=== PATIENT | female | born 1965 | race Caucasian/White ===

== ENCOUNTER → 2021-01-04 15:30 | Outpatient (BNVA) | payer SELFPAY | PROVIDERS: Visit Provider Nurse Practitioner Family | DX: N39.0 Urinary tract infection, site not specified (principal) | CPT/HCPCS: 81000; 87086 ==

== ENCOUNTER 2021-07-04 13:30 | Emergency (ER) | payer OTHER, SELFPAY ==
[2021-07-04 13:38] VITALS: BP 121/81; PULSE 110; RESP 18; TEMP 36.8; O2SAT 98; BMI 26.1
--- NOTE | 2021-07-04 13:51 | ED_ITS ---
HPI - General Adult General: Chief complaint: General Medical Stated complaint: diff swallowing, abnormality in the back of throat Time Seen by Provider: 07/04/21 13:43 History of Present Illness: Patient complains about sinus drainage over the last month. Patient now does have some dark drainage back of her throat. Patient denies cough fever or chills. Patient says throat is sore and hurts to swallow at times. Patient recently moved here from [facility]. Patient is a smoker. Patient denies any other problems. MD complaint: Sinus drainage and sore throat Associated symptoms: Reports nausea and vomiting; Deny chest pain, dyspnea, headache(s) or rash Review of Systems Narrative: Patient has not felt ill. Const: Denies: fever(s), chills or body aches Eyes: Denies: eye discomfort ENMT: Reports: throat pain and other (Drainage down the back of the throat, noticed dark drainage today in back o); Denies: uvular edema Card: Reports: dyspnea on exertion; Denies: chest pain Resp: Denies: dyspnea GI: Reports: nausea and vomiting; Denies: abdominal pain Skin/Breast: Denies: rash Neuro: Denies: headache(s) Psych: Denies: depression or suicidal ideation PFSH ED PFSH: Social History Smoking and tobacco status: current every day smoker Physical Exam Const: COMMON NORMALS: no acute distress, patient oriented x3 and alert HENMT: COMMON NORMALS: normocephalic HEAD & SCALP: normocephalic FACE & SINUS: normal facial exam and sinuses nontender THROAT: uvula midline, postnasal drainage and other (Patient has light brown to darkish drainage plastered against the back of t); no peritonsillar mass, uvula not laterally displaced and no uvular edema Eye: COMMON NORMALS: EOMs intact bilaterally Neck/C-Spine: COMMON NORMALS: no JVD Lymph: LYMPHATIC: lymphadenopathy (Patient has tenderness to anterior cervical nodes no marked swelling) Resp: COMMON NORMALS: normal respiratory effort and No use of accessory muscles Cardio: COMMON NORMALS: no JVD RATE: tachycardic GI: INSPECTION: Yes normal to inspection Extremity: COMMON NORMALS: normal to inspection and full ROM Neuro: COMMON NORMALS: patient oriented x3 SENSORIUM/ORIENTATION: Yes alert Psych: COMMON NORMALS: mental status grossly normal Skin: COMMON NORMALS: no rashes or lesions noted GENERAL SKIN EXAM: no rashes or lesions noted Course Vital Signs: Vital signs: Vital Signs Temperature 98.2 F 07/04/21 13:38 Pulse Rate 110 H 07/04/21 13:38 Respiratory Rate 18 07/04/21 13:38 Blood Pressure 121/81 07/04/21 13:38 Pulse Oximetry 98 07/04/21 13:38 MDM - General Adult Medical Decision Making Patient appears to have a possible chronic sinusitis. She is having dark drainage down the back of her throat that is plastered to the back of her throat and she was concerned about discoloration of that today she has been having drainage down the back of her throat for the last month a month and a half. She denies any fever chills or sinus pressure or tenderness. She does have some anterior cervical tenderness but no marked lymphadenopathy noted. Patient just moved here recently does not have a primary care when then made a referral to ear nose throat doc and asked her following up with primary care to follow-up with patient is a smoker Discharge Plan Discharge Patient Disposition: Home Clinical Impression: Sinus drainage Condition: Stable Prescriptions: New Bactrim DS 800-160 mg tablet 1 tab PO BID 10 Days Qty: 20 0RF Discontinued ciprofloxacin HCl [Cipro] 500 mg tablet 500 mg PO BID 5 Days Qty: 10 0RF No Action hydrocodone PO DAILY PRN0RF muscle relaxer PO [id number] Discharge Orders: Discharge ED (Routine); Ordered 07/04/21 Ordered By: Ron Choe Discharge Diet: Usual diet Discharge Activity: Resume usual activity Patient Instructions: Sinusitis (ED) Activity Restrictions/Additional Instructions: Follow-up with medical provider as directed. Take medications as prescribed. Return to the ER or your medical provider if condition worsens. Please read and understand discharge instructions. If any questions ask please. Since you do not have a primary care provider you will be referred to ear nose throat doctor for follow-up. If worsening symptoms occur please return here to the ER or seek out a primary care provider. Coding Level of Care Code ED Custom Motorcycle Painter for Charlene Fields
--- NOTE | 2021-07-05 11:10 | DCPLANNER ---
Addendum entered by Donna Kerr 07/30/21 13:50: Patient had a follow up appointment scheduled for 07.23.21 with ENT - appointment was cancelled. Addendum entered by Donna Kerr 07/09/21 13:27: Patient had a follow up appointment scheduled with [facility] ENT for Friday, July 23, 2021 at 9:[address] Chauhan at [facility] ENT clinic. Clinic will call patient with appointment information. Original Note: branch services manager had message to schedule a follow up appointment for patient with ENT. branch services manager emailed patients information to Nargis Drew and Hannah at [facility] General Surgery / ENT clinic. Patients information will be printed and reviewed. Clinic will call patient with appointment information.
== END 2021-07-04 13:59 | disposition home or self-care (01) ==
PROVIDERS: Emergency Provider Nurse Practitioner Family
DX: R09.82 Postnasal drip (principal); F17.210 Nicotine dependence, cigarettes, uncomplicated
CPT/HCPCS: 99282

== ENCOUNTER 2022-03-17 10:50 | Emergency (ER) | payer OTHER, SELFPAY ==
[2022-03-17 11:14] VITALS: BP 134/78; PULSE 89; RESP 16; TEMP 36.6; O2SAT 96; BMI 25.8
--- NOTE | 2022-03-17 11:37 | ED_ITS ---
HPI - Ear Problem General: Chief complaint: Ear Stated complaint: Right ear pain Time Seen by Provider: 03/17/22 11:17 History of Present Illness: Patient is a 56-year-old female comes to the ED with right ear pain. Symptoms started approximate 5 days ago. Pain worsens with any pressure on the external part of her ear. Denies any fevers, nausea/vomiting, balance issues or ear discharge. Denies any recent upper respiratory symptoms. Associated symptoms: Denies fever(s), headache(s) or neck pain Review of Systems Const: Denies: fever(s), chills or fatigue Eyes: Denies: change in vision or eye discomfort ENMT: Denies: throat pain, odynophagia, nasal discharge or nasal congestion Card: Denies: chest pain, palpitations, edema, swelling of feet/ankles, dyspnea on exertion or orthopnea Resp: Denies: dyspnea, productive cough or non-productive cough GI: Denies: abdominal pain, nausea, vomiting, diarrhea, constipation or hematochezia : Denies: flank pain, dysuria or hematuria Musc: Denies: neck pain, back pain or extremity swelling Skin/Breast: Denies: rash or new lesions Neuro: Denies: headache(s), numbness in extremities or weakness in extremities PFSH ED PFSH: Medical History No pertinent family history Surgical History No pertinent past surgical history Social History Smoking and tobacco status: current every day smoker Physical Exam Const: COMMON NORMALS: no acute distress, patient oriented x3 and alert GENERAL APPEARANCE: cooperative and comfortable HENMT: COMMON NORMALS: normocephalic and TM's normal bilaterally HEAD & SCALP: normocephalic EXTERNAL AUDITORY CANAL: Abnormal EAC present EAC laterality: right Details: erythema, edema and EAC tenderness TYMPANIC MEMBRANE: TM's normal bilaterally MOUTH: Normal oral and palatal mucosa present THROAT: posterior oropharynx normal and uvula midline Neck/C-Spine: COMMON NORMALS: supple GENERAL: Yes normal visual inspection Resp: COMMON NORMALS: normal respiratory effort, No retractions, No use of accessory muscles and clear to auscultation bilaterally AUSCULTATION: clear to auscultation bilaterally Cardio: COMMON NORMALS: regular rate, regular rhythm, S1 normal heart sound present, S2 normal heart sound present, No gallops present (Cardio), No clicks present (Cardio), No murmurs present (Cardio) and Peripheral pulses 2+ throughout RATE: regular rate RHYTHM: regular rhythm HEART SOUNDS: S1 normal heart sound present and S2 normal heart sound present PERIPHERAL PULSES: Peripheral pulses 2+ throughout GI: COMMON NORMALS: Normal to inspection, nondistended, normoactive bowel sounds present, Soft to palpation, non-tender and no masses PALPATION: Yes Soft to palpation : COMMON NORMALS: Yes no CVA tenderness BLADDER/KIDNEY EXAM: Yes no CVA tenderness Back/Pelvis: COMMON NORMALS: no CVA tenderness Extremity: COMMON NORMALS: normal to inspection Neuro: COMMON NORMALS: patient oriented x3 SENSORIUM/ORIENTATION: Yes alert GAIT: Yes Normal gait present Skin: GENERAL SKIN EXAM: dry skin Course Vital Signs: Vital signs: Vital Signs Temperature 97.9 F 03/17/22 11:14 Pulse Rate 89 03/17/22 11:14 Respiratory Rate 16 03/17/22 11:14 Blood Pressure 134/78 03/17/22 11:14 Pulse Oximetry 96 03/17/22 11:14 Oxygen Delivery Me thod 03/17/22 11:14 MDM - Ear Medical Decision Making Patient is a 56-year female comes to the ED with right ear pain. Upon exam patient has otitis externa of right ear. She she was discharged home with a prescription for Ciprodex eardrops. Told to follow-up with PCP in the next week for reevaluation. Patient understood and agreed with plan. Discharge Plan Discharge Patient Disposition: Home Clinical Impression: Otitis externa Qualifiers: Otitis externa type: unspecified type Chronicity: acute Laterality: right Qualified Code(s): H60.501 - Unspecified acute noninfective otitis externa, right ear Condition: Stable Prescriptions: New Ciprodex 0.3-0.1 % drops,suspension 4 drp otic (ear) BID 7 Days Qty: 7.5 0RF No Action hydrocodone PO DAILY PRN muscle relaxer PO PRN Discharge Orders: Discharge ED (Routine); Ordered 03/17/22 Ordered By: Mario Alberto Metcalf Discharge Diet: Regular Discharge Activity: Increase activity as tolerated Patient Instructions: Otitis Externa - Adult Activity Restrictions/Additional Instructions: Follow-up with medical provider as directed in the next 7 to 10 days for reeval uation. Take medications as prescribed. Return to the ER or your medical provider if condition worsens. Please read and understand discharge instructions. Thank you for choosing [facility] for your healthcare needs today. Please realize this is an emergency room and that we are providing you with a medical screening exam and this may not be complete and all inclusive of all the testing and or work up that you may need to determine your ailment or severity of your illness. It is very important that you follow up as instructed or that you return to the Emergency Department should you have concerns or if your condition changes or worsens in any way. Coding Level of Care Code ED Briquetter Operator for Charlene Fields Exam Comprehensive
== END 2022-03-17 11:51 | disposition home or self-care (01) ==
PROVIDERS: Emergency Provider Physician Assistant
DX: H60.501 Unspecified acute noninfective otitis externa, right ear (principal); F17.210 Nicotine dependence, cigarettes, uncomplicated
CPT/HCPCS: 99283